=== PATIENT | male | born 1970 | race Caucasian/White ===

== ENCOUNTER 2022-12-25 13:13 | Day surgery (SDC) | payer OTHER ==
[2022-12-25] MEDS ORDERED: Sodium Chloride 0.9(Preservative Free) 10 ML IJ ONE (13:14)
[2022-12-25] MEDS ORDERED: Depo-Medrol 40 MG/ML IM ONE (13:14)
[2022-12-25] MEDS ORDERED: DIPRIVAN 200 MG/20 ML IV ONE ×2 (14:42→14:56)
[2022-12-25] MEDS ORDERED: Lactated Ringers 1,000 ML IV ONE (15:06)
--- NOTE | 2022-12-25 16:59 | XRAY ---
Indication: Right L4-S1 transforaminal GUIDO. Intraoperative fluoroscopy provided for 1 minutes 10 seconds. 6 digital spot images submitted for interpretation demonstrates posterior needle tips projecting over the expected right L4 and L5 nerve roots. Small amount of contrast injected for needle tip placement. Correlate with intraoperative findings/report.
--- NOTE | 2022-12-25 17:05 | XRAY ---
1 minute and 10 seconds of fluoroscopy was used in surgery for a right L4-S1 transforaminal GUIDO.
== END 2022-12-25 15:15 | disposition home or self-care (01) ==
LOC: SDC-PAIN 13:13
PROVIDERS: ATTEND Psychiatry & Neurology Pain Medicine
DX: M54.16 Radiculopathy, lumbar region (principal); Z79.899 Other long term (current) drug therapy
CPT/HCPCS: 64483; 64484; 72100; 77003; J1030; J2704; Q9966

== ENCOUNTER 2023-03-05 11:33 | Day surgery (SDC) | payer OTHER ==
[2023-03-05] MEDS ORDERED: LIDOCAINE HCL 2% 100 MG/5 ML IJ ONE (11:34)
[2023-03-05] MEDS ORDERED: DIPRIVAN 200 MG/20 ML IV ONE ×2 (14:24→14:30)
[2023-03-05] MEDS ORDERED: Lactated Ringers 1,000 ML IV ONE (14:52)
--- NOTE | 2023-03-05 16:55 | XRAY ---
Indication: Bilateral L4-S1 MBB. Intraoperative fluoroscopy provided for 9 seconds. 2 digital spot images submitted for interpretation demonstrates posterior needle tips projecting over the expected left and right L4-S1 nerve roots. Correlate with intraoperative findings/report.
--- NOTE | 2023-03-05 17:05 | XRAY ---
9 seconds of fluoroscopy was used in surgery for a bilateral L4-S1 MBB.
== END 2023-03-05 14:49 | disposition home or self-care (01) ==
LOC: SDC-PAIN 11:33
PROVIDERS: ATTEND Psychiatry & Neurology Pain Medicine
DX: M47.816 Spondylosis without myelopathy or radiculopathy, lumbar region (principal); Z79.899 Other long term (current) drug therapy
CPT/HCPCS: 64493; 64494; 72020; 77002; J2704

== ENCOUNTER 2023-04-10 08:28 | Day surgery (SDC) | payer OTHER ==
[2023-04-10] MEDS ORDERED: Depo-Medrol 40 MG/ML IM ONE (08:29)
[2023-04-10] MEDS ORDERED: BUPIVACAINE 0.5% VIAL IJ ONE (08:29)
[2023-04-10] MEDS ORDERED: DIPRIVAN 200 MG/20 ML IV ONE (10:39)
--- NOTE | 2023-04-10 10:59 | XRAY ---
Indication: Bilateral L4-S1 MBB. Intraoperative fluoroscopy provided for 16 seconds. Single digital spot image submitted for interpretation demonstrates posterior needle tips projecting over the expected left and right L4-S1 nerve roots. Correlate with intraoperative findings/report.
--- NOTE | 2023-04-10 13:06 | XRAY ---
16 seconds of fluoroscopy was used in surgery for a bilateral L4-S1 MBB.
[2023-04-10] MEDS ORDERED: Lactated Ringers 1,000 ML IV ONE (16:16)
== END 2023-04-10 10:19 | disposition home or self-care (01) ==
LOC: SDC-PAIN 08:28
PROVIDERS: ATTEND Psychiatry & Neurology Pain Medicine
DX: M47.816 Spondylosis without myelopathy or radiculopathy, lumbar region (principal); Z79.899 Other long term (current) drug therapy
CPT/HCPCS: 64493; 64494; 72020; 77002; J1030; J2704

== ENCOUNTER 2023-05-21 14:17 | Day surgery (SDC) | payer OTHER ==
[2023-05-21] MEDS ORDERED: Depo-Medrol 40 MG/ML IM ONE (14:18)
[2023-05-21] MEDS ORDERED: XYLOCAINE-MPF 1% 5ML SDV IJ ONE (14:18)
[2023-05-21] MEDS ORDERED: BUPIVACAINE 0.5% VIAL IJ ONE (14:18)
[2023-05-21] MEDS ORDERED: Lactated Ringers 1,000 ML IV ONE (17:07)
[2023-05-21] MEDS ORDERED: DIPRIVAN 200 MG/20 ML IV ONE (17:31)
--- NOTE | 2023-05-21 20:16 | XRAY ---
Indication: Right L4-S1 RFA Intraoperative fluoroscopy provided for 15 seconds. 3 digital spot image submitted for interpretation demonstrates posterior needle tips projecting over the expected right L4-S1 nerve roots. Correlate with intraoperative findings/report.
--- NOTE | 2023-05-22 09:37 | XRAY ---
15 seconds of fluoroscopy was used in surgery for a right L4-S1 RFA.
== END 2023-05-21 17:52 | disposition home or self-care (01) ==
LOC: SDC-PAIN 14:17
PROVIDERS: ATTEND Psychiatry & Neurology Pain Medicine
DX: M47.816 Spondylosis without myelopathy or radiculopathy, lumbar region (principal)
CPT/HCPCS: 64635; 64636; 72100; 77002; J1030; J2704

== ENCOUNTER 2023-05-28 11:54 | Day surgery (SDC) | payer OTHER ==
[2023-05-28] MEDS ORDERED: XYLOCAINE-MPF 1% 5ML SDV IJ ONE (11:55)
[2023-05-28] MEDS ORDERED: Depo-Medrol 40 MG/ML IM ONE (11:55)
[2023-05-28] MEDS ORDERED: BUPIVACAINE 0.5% VIAL IJ ONE (11:55)
[2023-05-28] MEDS ORDERED: DIPRIVAN 200 MG/20 ML IV ONE ×2 (15:07→15:19)
[2023-05-28] MEDS ORDERED: Lactated Ringers 1,000 ML IV ONE (15:30)
--- NOTE | 2023-05-28 16:40 | XRAY ---
Indication: Left L4-S1 RFA. Intraoperative fluoroscopy provided for 19 seconds. 4 digital spot image submitted for interpretation demonstrates posterior needle tips projecting over the expected left L4-S1 nerve roots. Correlate with intraoperative findings/report.
--- NOTE | 2023-05-28 16:42 | XRAY ---
19 seconds of fluoroscopy was used in surgery for a left L4-S1 RFA.
== END 2023-05-28 15:45 | disposition home or self-care (01) ==
LOC: SDC-PAIN 11:54
PROVIDERS: ATTEND Psychiatry & Neurology Pain Medicine
DX: M47.816 Spondylosis without myelopathy or radiculopathy, lumbar region (principal)
CPT/HCPCS: 64635; 64636; 72100; 77002; J1030; J2704

== ENCOUNTER 2024-03-03 12:12 | Day surgery (SDC) | payer OTHER ==
[2024-03-03] MEDS ORDERED: LIDOCAINE HCL 1% AMPUL 5 ML IJ ONE (12:13)
[2024-03-03] MEDS ORDERED: Depo-Medrol 40 MG/ML IM ONE (12:13)
[2024-03-03] MEDS ORDERED: BUPIVACAINE 0.5% VIAL IJ ONE (12:13)
[2024-03-03] MEDS ORDERED: DIPRIVAN 200 MG/20 ML IV ONE (14:13)
--- NOTE | 2024-03-03 16:24 | XRAY ---
Indication: Right L4-S1 RFA. Intraoperative fluoroscopy provided for 23 seconds. 4 digital spot image submitted for interpretation demonstrates posterior needle tips projecting over the expected right L4-S1 nerve roots. Correlate with intraoperative findings/report.
--- NOTE | 2024-03-03 16:59 | XRAY ---
23 seconds of fluoroscopy was used in surgery for a right L4-S1 RFA.
== END 2024-03-03 14:50 | disposition home or self-care (01) ==
LOC: SDC-PAIN 12:12
PROVIDERS: ATTEND Psychiatry & Neurology Pain Medicine
DX: M47.816 Spondylosis without myelopathy or radiculopathy, lumbar region (principal)
CPT/HCPCS: 72100; 77002; J2704

== ENCOUNTER 2024-03-10 12:08 | Day surgery (SDC) | payer OTHER ==
[2024-03-10] MEDS ORDERED: BUPIVACAINE 0.5% VIAL IJ ONE (12:09)
[2024-03-10] MEDS ORDERED: Depo-Medrol 40 MG/ML IM ONE (12:09)
[2024-03-10] MEDS ORDERED: LIDOCAINE HCL 1% AMPUL 5 ML IJ ONE (12:09)
[2024-03-10] MEDS ORDERED: DIPRIVAN 200 MG/20 ML IV ONE (14:41)
--- NOTE | 2024-03-10 16:33 | XRAY ---
Indication: Left L4-S1 RFA. Intraoperative fluoroscopy provided for 14 seconds. 3 digital spot image submitted for interpretation demonstrates posterior needle tips projecting over expected left L4-S1 nerve roots. Correlate with intraoperative findings/report.
--- NOTE | 2024-03-10 16:47 | XRAY ---
14 seconds of fluoroscopy was used in surgery for a left L4-S1 RFA.
== END 2024-03-10 15:20 | disposition home or self-care (01) ==
LOC: SDC-PAIN 12:08
PROVIDERS: ATTEND Psychiatry & Neurology Pain Medicine
DX: M47.816 Spondylosis without myelopathy or radiculopathy, lumbar region (principal)
CPT/HCPCS: 64635; 64636; 72100; 77002; J2704

== ENCOUNTER 2024-05-12 14:24 | Day surgery (SDC) | payer OTHER ==
[2024-05-12] MEDS ORDERED: BUPIVACAINE 0.5% VIAL IJ ONE (14:25)
[2024-05-12] MEDS ORDERED: Depo-Medrol 40 MG/ML IM ONE (14:25)
[2024-05-12] MEDS ORDERED: propofoL IV ONE ×2 (16:08→16:17)
--- NOTE | 2024-05-12 21:18 | XRAY ---
Indication: Bilateral SI joint injection. Intraoperative fluoroscopy provided for 28 seconds. 2 digital spot images submitted for interpretation demonstrates posterior needle tips projecting over the left and right SI joints. Small amount of contrast injected for needle tip placement. Correlate with intraoperative findings/report.
--- NOTE | 2024-05-12 21:22 | XRAY ---
28 seconds of fluoroscopy were used in surgery for bilateral sacroiliac joint injections.
== END 2024-05-12 16:50 | disposition home or self-care (01) ==
LOC: SDC-PAIN 14:24
PROVIDERS: ATTEND Psychiatry & Neurology Pain Medicine
DX: M46.1 Sacroiliitis, not elsewhere classified (principal)
CPT/HCPCS: 27096; 72202; 77002; J2704; Q9966